=== PATIENT | female | born 1995 | race Caucasian/White ===

== ENCOUNTER 2017-10-02 06:10 | Emergency (ER) | payer SELFPAY ==
--- NOTE | 2017-10-02 06:33 | PDOC ---
History of Present Illness - General History Source: Patient Exam Limitations: No Limitations - History of Present Illness Initial Comments: 10/02/17 07:00 The patient is a 22 year old female with a significant PMH of asthma who presents to the emergency department with mild abdominal pain, two episodes of non bloody non-bilious emesis, and diarrhea x2 today. The patient states she had a subjective fever yesterday that has since resolved. The patient states her abdominal pain is mild and diffuse and is currently complaining of bloating. The patient notes she has not been tolerating PO intake due to subsequent nausea and vomiting. The patient states her menses is normal and denies possible . 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 The patient denies chest pain, shortness of breath, headache and dizziness. Denies chills, and constipation. Denies dysuria, frequency, urgency and hematuria. Patient reports she had a flu shot recently. Allergies: NKA Past surgical history: None reported Social history: No reported alcohol, cigarette, or drug use. <Lnidsey Ibarra - Last Filed: 10/02/17 07:00> <Renae Reno - Last Filed: 10/02/17 19:50> - General Chief Complaint: Vomiting/Diarrhea Stated Complaint: VOMITING, ABDOMINAL PAIN Time Seen by Provider: 10/02/17 06:27 Past History <Lindsey Ibarra - Last Filed: 10/02/17 07:00> - Suicide/Smoking/Psychosocial Hx Smoking History: Never smoked Have you smoked in the past 12 months: No Information on smoking cessation initiated: No Hx Alcohol Use: No Drug/Substance Use Hx: No <Renae Reno - Last Filed: 10/02/17 19:50> - Past Medical History Allergies/Adverse Reactions: Allergies Allergy/AdvReac Type Severity Reaction Status Date / Time No Known Allergies Allergy Verified 10/02/17 06:26 Home Medications: Ambulatory Orders Ondansetron [Zofran *Odt*] 8 mg SL TID PRN #14 od.tablet 10/02/17 Review of Systems - Review of Systems Able to Perform ROS?: Yes Comments:: 10/02/17 07:01 GENERAL/CONSTITUTIONAL: (+) Fever. No chills. No weakness. HEAD, EYES, EARS, NOSE AND THROAT: No change in vision. No ear pain or discharge. No sore throat. CARDIOVASCULAR: No chest pain or shortness of breath. RESPIRATORY: No cough, wheezing, or hemoptysis. GASTROINTESTINAL: (+) Mild abdominal pain. (+) Nausea. (+) Vomiting. (+) Diarrhea. No constipation. GENITOURINARY: No dysuria, frequency, or change in urination. MUSCULOSKELETAL: No joint or muscle swelling or pain. No neck or back pain. SKIN: No rash NEUROLOGIC: No headache, vertigo, loss of consciousness, or change in strength/ sensation. ENDOCRINE: No increased thirst. No abnormal weight change. HEMATOLOGIC/LYMPHATIC: No anemia, easy bleeding, or history of blood clots. ALLERGIC/IMMUNOLOGIC: No hives or skin allergy. <Lindsey Ibarra - Last Filed: 10/02/17 07:00> *Physical Exam - Vital Signs Last Vital Signs Temp Pulse Resp BP Pulse Ox 99.1 F 98 H 20 95/55 99 10/02/17 06:26 10/02/17 06:26 10/02/17 06:26 10/02/17 06:26 10/02/17 06:26 - Physical Exam Comments: 10/02/17 07:02 GENERAL: Awake, alert, and fully oriented, in no acute distress HEAD: No signs of trauma EYES: PERRLA, EOMI, sclera anicteric, conjunctiva clear ENT: Auricles normal inspection, hearing grossly normal, nares patent, oropharynx clear without exudates. Moist mucosa NECK: Normal ROM, supple, no lymphadenopathy, JVD, or masses LUNGS: Breath sounds equal, clear to auscultation bilaterally. No wheezes, and no crackles HEART: Regular rate and rhythm, normal S1 and S2, no murmurs, rubs or gallops ABDOMEN: Soft, nontender, normoactive bowel sounds. No guarding, no rebound. No masses EXTREMITIES: Normal range of motion, no edema. No clubbing or cyanosis. No cords , erythema, or tenderness NEUROLOGICAL: Cranial nerves II through XII grossly intact. Normal speech, normal gait SKIN: Warm, Dry, normal turgor, no rashes or lesions noted. <Lindsey Ibarra - Last Filed: 10/02/17 07:00> - Vital Signs Last Vital Signs Temp Pulse Resp BP Pulse Ox 99.1 F 98 H 20 95/55 99 10/02/17 06:26 10/02/17 06:26 10/02/17 06:26 10/02/17 06:26 10/02/17 06:26 <Renae Reno - Last Filed: 10/02/17 19:50> ED Treatment Course - Medications Given in the ED: ED Medications Discontinued Medications Generic Name Dose Route Start Last Admin Trade Name Freq PRN Reason Stop Dose Admin Ondansetron HCl 4 mg 10/02/17 06:48 10/02/17 06:51 Zofran Injection IVPB 10/02/17 06:49 4 mg ONCE ONE Administration <Lindsey Ibarra - Last Filed: 10/02/17 07:00> - LABORATORY CBC & Chemistry Diagram: 10/02/17 06:36 10/02/17 06:36 <Renae Reno - Last Filed: 10/02/17 19:50> Medical Decision Making - Medical Decision Making 10/02/17 06:47 Pt vomited 2x and diarrheax2 and she comes with fever, which resolved now. She has diffuse mild abd pain. Pt has no other complaints. Exam is normal. Pt will have basic labs and urine sent off. 10/02/17 06:58 Pt will be signed out to the day team <Renae Reno - Last Filed: 10/02/17 19:50> *DC/Admit/Observation/Transfer - Attestations Scribe Attestion: 10/02/17 07:03 Documentation prepared by Lindsey Ibarra, acting as medical chief technician for Renae Reno MD. <iLndsey Ibarra - Last Filed: 10/02/17 07:00> <Renae Reno - Last Filed: 10/02/17 19:50> Diagnosis at time of Disposition: Vomiting, Dyspepsia - Discharge Dispostion Disposition: HOME Condition at time of disposition: Improved - Prescriptions Prescriptions: Ondansetron [Zofran *Odt*] 8 mg SL TID PRN #14 od.tablet PRN Reason: Nausea - Referrals Referrals: Jose Garcia MD [Staff Physician] - - Patient Instructions Printed Discharge Instructions: DI for Dyspepsia Additional Instructions: Activity as tolerated. Stay hydrated. Advance diet as tolerated, temporarily avoiding dairy, spicy fatty foods, caffeine and alcohol. Tylenol 1000 mg every 8 hours as needed for fever/aches. Take Zofran as prescribed as needed for nausea. Take Pepcid once or twice daily for 5-7 days as an antacid, this is available [id number]. Continue your medications as previously prescribed by your physician. You should follow up with your primary doctor (since you are new to the area, consider calling Dr. Garcia for an appointment) as soon as possible regarding today's emergency department visit. Return to the emergency department for any new or concerning symptoms, particularly persistent or worsening pain, persistent vomiting or dehydration, bloody vomit or stool, persistent fevers or chills.
[2017-10-02] MEDS ORDERED: ONDANSETRON 4 MG/2 ML VIAL IVPB ONE (06:48)
[2017-10-02] MEDS ORDERED: ONDANSETRON 4 MG/2 ML VIAL ONE (06:48)
[2017-10-02] MEDS ORDERED: FAMOTIDINE 20 MG/50 ML IVPB 20 MG/50 ML MG IVPB ONE ×2 (06:49→06:58)
[2017-10-02 07:13] LABS: BASO % 0.2 % (0-2.0); EOS # 0.1 # (0-4.5); LYMPH # 0.4 (8-40); MCH 27.8 pg (25.7-33.7); MCHC 32.2 g/dl (32.0-36.0); MEAN CELL VOLUME 86.4 fl (80-96); MEAN PLT VOLUME 7.3 fl (7.5-11.1); MONO # 0.2 # (3.8-10.2); NEUT # 6.5 # (42.8-82.8); NEUT % 90.7 % (42.8-82.8); PLATELET COUNT 325 K/MM3 (134-434); RDW 14.9 % (11.6-15.6); WHITE BLOOD COUNT 7.2 K/mm3 (4.0-10.0)
[2017-10-02 07:14] VITALS: BMI 35.9
[2017-10-02 07:33] LABS: ALBUMIN 3.7 g/dl (3.4-5.0); ALK PHOS 86 U/L (45-117); AMYLASE 31 U/L (25-115); ANION GAP 8 (8-16); BILIRUBIN,TOTAL 0.5 mg/dL (0.2-1.0); CALCIUM 8.9 mg/dL (8.5-10.1); CO2 24 mmol/L (21-32); GLUCOSE,RANDOM 87 mg/dL (74-106); SGOT/AST 10 U/L (15-37); SGPT/ALT 20 U/L (12-78); TOT PROT 7.1 g/dl (6.4-8.2)
[2017-10-02 07:37] LABS: URINE APPEARANCE CLEAR; URINE BILIRUBIN NEGATIVE (NEGATIVE); URINE BLOOD NEGATIVE (NEGATIVE); URINE COLOR LTYELLOW; URINE GLUCOSE (UA) NEGATIVE (NEGATIVE); URINE KETONE NEGATIVE (NEGATIVE); URINE LEUK ESTERASE TRACE (NEGATIVE); URINE NITRITE NEGATIVE (NEGATIVE); URINE PROTEIN NEGATIVE (NEGATIVE); URINE UROBILINOGEN NEGATIVE mg/dL (0.2-1.0)
[2017-10-02 07:50] LABS: URINE MUCUS RARE; URINE WBC <1 /hpf (3-5)
[2017-10-02] MEDS ORDERED: ACETAMINOPHEN 500 MG TABLET (FP) PO ONE (09:04)
--- NOTE | 2017-10-02 09:10 | PDOC ---
*Physical Exam - Vital Signs Last Vital Signs Temp Pulse Resp BP Pulse Ox 99.1 F 98 H 20 95/55 99 10/02/17 06:26 10/02/17 06:26 10/02/17 06:26 10/02/17 06:26 10/02/17 06:26 - Physical Exam Comments: 10/02/17 09:04 Vital signs within normal limits, heart rate 88. Well-appearing, on her cell phone seated in stretcher Tolerated by mouth, abdomen is soft/nondistended. Epigastric discomfort without guarding or rebound, no right upper quadrant tenderness, no CVA tenderness ED Treatment Course - LABORATORY CBC & Chemistry Diagram: 10/02/17 06:36 10/02/17 06:36 - ADDITIONAL ORDERS Additional order review: Laboratory Results 10/02/17 10/02/17 06:36 06:36 Sodium 141 Potassium 4.5 Chloride 109 H Carbon Dioxide 24 Anion Gap 8 BUN 13 Creatinine 1.0 Creat Clearance w eGFR > 60 Random Glucose 87 Calcium 8.9 Total Bilirubin 0.5 AST 10 L ALT 20 Alkaline Phosphatase 86 Total Protein 7.1 Albumin 3.7 Total Amylase 31 Lipase 112 Urine Color Ltyellow Urine Appearance Clear Urine pH 7.0 Ur Specific [place] 1.013 Urine Protein Negative Urine Glucose (UA) Negative Urine Ketones Negative Urine Blood Negative Urine Nitrite Negative Urine Bilirubin Negative Urine Urobilinogen Negative Urine WBC (Auto) <1 Urine RBC (Auto) None Ur Epithelial Cells Rare Urine Mucus Rare Urine HCG, Qual Negative 10/02/17 06:36 RBC 4.49 MCV 86.4 MCHC 32.2 RDW 14.9 MPV 7.3 L Neutrophils % 90.7 H Lymphocytes % 5.0 L Monocytes % 3.1 L Eosinophils % 1.0 Basophils % 0.2 - Medications Given in the ED: ED Medications Discontinued Medications Generic Name Dose Route Start Last Admin Trade Name Freq PRN Reason Stop Dose Admin Ondansetron HCl 4 mg 10/02/17 06:48 10/02/17 06:51 Zofran Injection IVPB 10/02/17 06:49 4 mg ONCE ONE Administration Medical Decision Making - Medical Decision Making 10/02/17 09:05 Received signout on this healthy 22-year-old female with vomiting and upper abdominal pain, patient had been given IV fluids and antiemetics and antacid. Plan at sign out was to check labs and urinalysis and discharge if within normal limits. No leukocytosis, chemistries are normal including lipase, urinalysis is normal and urine is negative. Patient feels better, is tolerating by mouth, has no persistent or worsening abdominal pain and no focal peritoneal findings on examination. No indication for further emergent workup, agrees with discharge plan on antacid, antiemetic, and Tylenol as needed for fever. Understands return criteria. *DC/Admit/Observation/Transfer Diagnosis at time of Disposition: Dyspepsia Vomiting Qualifiers: Vomiting type: unspecified Vomiting Intractability: non-intractable Nausea presence: with nausea Qualified Code(s): R11.2 - Nausea with vomiting, unspecified - Discharge Dispostion Disposition: HOME Condition at time of disposition: Improved - Prescriptions Prescriptions: Ondansetron [Zofran *Odt*] 8 mg SL TID PRN #14 od.tablet PRN Reason: Nausea - Referrals Referrals: Jose Garcia MD [Staff Physician] - - Patient Instructions Printed Discharge Instructions: DI for Dyspepsia Additional Instructions: Activity as tolerated. Stay hydrated. Advance diet as tolerated, temporarily avoiding dairy, spicy fatty foods, caffeine and alcohol. Tylenol 1000 mg every 8 hours as needed for fever/aches. Take Zofran as prescribed as needed for nausea. Take Pepcid once or twice daily for 5-7 days as an antacid, this is available [id number]. Continue your medications as previously prescribed by your physician. You should follow up with your primary doctor (since you are new to the area, consider calling Dr. Garcia for an appointment) as soon as possible regarding today's emergency department visit. Return to the emergency department for any new or concerning symptoms, particularly persistent or worsening pain, persistent vomiting or dehydration, bloody vomit or stool, persistent fevers or chills. - Post Discharge Activity
[2017-10-02] MEDS ORDERED: ACETAMINOPHEN 325 MG TABLET (FP) ONE (09:13)
[2017-10-02 09:25] VITALS: BP 101/64; PULSE 94; TEMP 99.7
[2017-10-02 14:03] LABS: URINE LEUK ESTERASE TRACE (NEGATIVE)
== END 2017-10-02 09:26 | disposition home or self-care (01) ==
LOC: JER 06:10
PROC: 3E033GC Introduction of Other Therapeutic Substance into Peripheral Vein, Percutaneous Approach (ICD-10-PCS; principal; 2017-10-02)
DX: R10.13 Epigastric pain (principal); R11.10 Vomiting, unspecified
CPT/HCPCS: 36415; 80053; 81003; 81015; 82150; 83690; 84703; 85025; 99282-25